=== PATIENT | male | born 1985 | race Caucasian/White ===

== ENCOUNTER 2021-01-24 09:16 | Emergency (ER) | payer OTHER ==
[2021-01-24 09:21] VITALS: BP 125/83; PULSE 76; TEMP 97.8; BMI 34.0
== END 2021-01-24 10:03 | disposition home or self-care (01) ==
LOC: JER 09:16 → JERFT 09:16
DX: K64.9 Unspecified hemorrhoids (principal)
CPT/HCPCS: 99282-25

== ENCOUNTER 2022-09-21 20:04 | Emergency (ER) | payer OTHER ==
[2022-09-21 20:16] VITALS: BP 143/76; PULSE 90; RESP 18; TEMP 98.1; BMI 34.0
[2022-09-21] MEDS ORDERED: CEFTRIAXONE 500 MG in DEXTROSE 5%-WATER - 50 ML IM ONE (20:35)
[2022-09-21] MEDS ORDERED: DOXYCYCLINE HYCLATE 100 MG CAPSULE PO ONE ×2 (20:37→21:03)
[2022-09-21] MEDS ORDERED: LIDOCAINE HCL/PF 1% SDV 5ML VIAL ONE (21:05)
[2022-09-21 21:40] LABS: URINE APPEARANCE CLEAR; URINE BILIRUBIN NEGATIVE (NEGATIVE); URINE COLOR YELLOW; URINE GLUCOSE (UA) NEGATIVE (NEGATIVE); URINE KETONE NEGATIVE (NEGATIVE); URINE LEUK ESTERASE NEGATIVE (NEGATIVE); URINE NITRITE NEGATIVE (NEGATIVE); URINE PROTEIN NEGATIVE (NEGATIVE)
== END 2022-09-22 00:38 | disposition home or self-care (01) ==
LOC: JER 20:04
DX: N50.812 Left testicular pain (principal); N45.1 Epididymitis
CPT/HCPCS: 36415; 76870-TC; 81003; 87086; 87491; 87591; 99284-25